=== PATIENT | female | born 1930 | race Caucasian/White ===

== ENCOUNTER → 2016-07-01 | Outpatient (CLI) | payer MEDICARE, OTHER ==
--- NOTE | 2016-07-01 15:35 | RADRPT ---
PROCEDURE: Left knee radiographs. CLINICAL INDICATION: Left knee pain. Postop. TECHNIQUE: Three views. Weight bearing. Frontal, lateral, and patellar view. COMPARISON: No prior studies are available for comparison. FINDINGS: There is no fracture or dislocation. The soft tissues are normal. 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 There is no lytic or blastic lesion. There is no joint effusion. IMPRESSION: 1. Satisfactory postoperative appearance of the left knee. RPTAT: QQ .Raulito Hurst MD, Date Time Electronically viewed and signed by .Raulito Hurst MD, on 07/01/2016 15:35 .R/
--- NOTE | 2016-07-01 15:35 | RADRPT ---
PROCEDURE: XR Left Hip and pelvis. CLINICAL INDICATION: Left hip pain. Pelvic pain. Postop. TECHNIQUE: Three views. Frontal pelvis. Frontal and lateral left hip. COMPARISON: No prior studies are available for comparison. FINDINGS: There is no fracture or dislocation. The soft tissues are normal. There is a left hip total arthroplasty which appears satisfactory. There are degenerative changes of the right hip with joint space narrowing and osteophytes. There is no lytic or blastic lesion. The upper pelvis is not included on the image. IMPRESSION: 1. Satisfactory postoperative appearance of the left hip. 2. 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 RPTAT: QQ .Raulito Hurst MD, MD Date Time Electronically viewed and signed by .Raulito Hurst MD, MD on 07/01/2016 15:34 .R/
== END | disposition home or self-care (01) ==
LOC: HKI 13:59
PROVIDERS: ATTEND Orthopaedic Surgery
DX: M51.16 Intervertebral disc disorders with radiculopathy, lumbar region (principal); M41.26 Other idiopathic scoliosis, lumbar region; M48.06 Spinal stenosis, lumbar region; Z96.642 Presence of left artificial hip joint; Z96.652 Presence of left artificial knee joint
CPT/HCPCS: 73502; 73562; G0463